=== PATIENT | female | born 1945 | race African-American/Black ===

== ENCOUNTER → 2019-04-15 | Outpatient (CLI) | payer MEDICARE, OTHER ==
[~2019-04-15] MED LIST: ALB5IS NEB; AMLO5TAB15 PO; BUDE0.253 IN
[2019-04-15 08:21] LABS: Basophils # (auto) 0 uL; Basophils % (auto) 0.6 % (0.0-2.0); Eosinophils # (auto) 0.1 uL; Eosinophils % (auto) 1.8 % (0.0-7.0); Hematocrit 39.9 % (36.0-46.0); Hemoglobin 13.4 g/dL (12.2-16.2); Lymphocytes # (auto) 1.7 uL; Lymphocytes % (auto) 25.4 % (10.0-50.0); Mean Corpuscular Hemoglobin 28.2 pg (28.0-32.0); Mean Corpuscular Hgb Conc. 33.6 g/dL (32.0-36.0); Mean Corpuscular Volume 84.1 fL (80.0-100.0); Monocytes # (auto) 0.6 uL; Monocytes % (auto) 8.2 % (0.0-12.0); Neutrophils # (auto) 4.4 uL; Platelet Count (auto) 356 10^3/uL (140-450); Red Blood Cells 4.75 10^6/uL (4.0-5.20); Red Cell Distribution Width 15.2 % (11.8-14.3); White Blood Cell 6.9 10^3/uL (4.4-10.8)
[2019-04-15 08:53] LABS: Potassium 3.8 mmol/L (3.5-5.1)
== END | disposition home or self-care (01) ==
LOC: LAB 07:41
PROVIDERS: ATTEND Internal Medicine
DX: I10 Essential (primary) hypertension (principal); E87.6 Hypokalemia
CPT/HCPCS: 36415; 80061; 82088; 84132; 85025

== ENCOUNTER → 2019-05-06 | Day surgery (SDC) | payer MEDICARE, OTHER ==
[2019-05-03 09:44] LABS: Basophils # (auto) 0 uL; Basophils % (auto) 0.2 % (0.0-2.0); Eosinophils # (auto) 0.1 uL; Eosinophils % (auto) 1.5 % (0.0-7.0); Hematocrit 37.8 % (36.0-46.0); Hemoglobin 12.6 g/dL (12.2-16.2); Lymphocytes # (auto) 1.4 uL; Lymphocytes % (auto) 17.4 % (10.0-50.0); Mean Corpuscular Hemoglobin 28.2 pg (28.0-32.0); Mean Corpuscular Hgb Conc. 33.4 g/dL (32.0-36.0); Mean Corpuscular Volume 84.4 fL (80.0-100.0); Monocytes # (auto) 0.4 uL; Monocytes % (auto) 5.1 % (0.0-12.0); Neutrophils # (auto) 6.1 uL; Neutrophils % (auto) 75.8 % (37.0-80.0); Platelet Count (auto) 277 10^3/uL (140-450); Red Blood Cells 4.48 10^6/uL (4.0-5.20); Red Cell Distribution Width 14.8 % (11.8-14.3); White Blood Cell 8.1 10^3/uL (4.4-10.8)
[2019-05-03 10:08] LABS: INR 0.96 (0.9-1.15); Partial Thromboplastin Time 26.8 sec (23.64-32.05)
[~2019-05-06] VITALS: Ht 157.5 cm; Wt 77.1 kg
[~2019-05-06] MED LIST changes: +SODIUM CHLORIDE LOCK 10 ML ONE; +diphenhdrAMINE HCL 50 MG/1 ML VL ONE
[2019-05-06] MEDS: MIDAZOLAM HCL 5 MG/ML-1ML VIAL ONE ×3 (10:00→10:07)
[2019-05-06] MEDS: fentaNYL CITRATE 100 MCG/2 ML VL ONE ×3 (10:00→10:07)
[2019-05-06 10:41] VITALS: BP 115/64
== END | disposition home or self-care (01) ==
LOC: GI 08:25
PROVIDERS: ATTEND Internal Medicine Gastroenterology
DX: K52.9 Noninfective gastroenteritis and colitis, unspecified (principal); K57.30 Diverticulosis of large intestine without perforation or abscess without bleeding; J45.909 Unspecified asthma, uncomplicated; G51.0 Bell's palsy; Z79.899 Other long term (current) drug therapy
CPT/HCPCS: 36415; 45378; 85025; 85610; 85730; J1200; J2250; J3010; J7030; G0500

== ENCOUNTER → 2019-08-23 | Outpatient (CLI) | payer MEDICARE ==
[~2019-08-23] MED LIST changes: -SODIUM CHLORIDE LOCK 10 ML ONE; -diphenhdrAMINE HCL 50 MG/1 ML VL ONE
[2019-08-23 10:26] LABS: Potassium 3.9 mmol/L (3.5-5.1)
[2019-08-23 11:09] LABS: Albumin 3.4 g/dL (3.4-5.0); BUN/Creatinine Ratio 21.1; Bilirubin, Total 0.4 mg/dL (0.2-1.0); Calcium 8.7 mg/dL (8.5-10.1); Total Protein 7.8 g/dL (6.4-8.2)
== END | disposition home or self-care (01) ==
LOC: LAB 09:33
PROVIDERS: ATTEND Internal Medicine
DX: I10 Essential (primary) hypertension (principal); E78.00 Pure hypercholesterolemia, unspecified
CPT/HCPCS: 36415; 80053; 80061; 84439; 84443

== ENCOUNTER → 2019-08-27 | Outpatient (CLI) | payer MEDICARE ==
[2019-08-27 10:36] LABS: Basophils # (auto) 0 10 ^3/uL (0-0.2); Basophils % (auto) 0.5 % (0.0-2.0); Eosinophils # (auto) 0.1 10 ^3/uL (0-0.8); Eosinophils % (auto) 1.1 % (0.0-7.0); Hemoglobin 12.7 g/dL (12.2-16.2); Lymphocytes # (auto) 1.2 10 ^3/uL (0.4-5.4); Mean Corpuscular Hemoglobin 27.5 pg (28.0-32.0); Mean Corpuscular Hgb Conc. 32.6 g/dL (32.0-36.0); Mean Corpuscular Volume 84.6 fL (80.0-100.0); Monocytes # (auto) 0.4 10 ^3/uL (0-1.3); Monocytes % (auto) 5.5 % (0.0-12.0); Neutrophils # (auto) 5.5 10 ^3/uL (1.6-8.6); Neutrophils % (auto) 75.9 % (37.0-80.0); Platelet Count (auto) 277 10^3/uL (140-450); Red Blood Cells 4.61 10^6/uL (4.0-5.20); Red Cell Distribution Width 14.7 % (11.8-14.3); White Blood Cell 7.3 10^3/uL (4.4-10.8)
[2019-08-27 10:49] LABS: Urine Bacteria MANY /hpf (None Seen); Urine Blood Negative /uL (Negative); Urine Hyaline Cast FEW /lpf (0 - 2); Urine Mucus FEW (None Seen); Urine Specific Gravity 1.014 (1.001-1.035); Urine WBC 2 /hpf (0 - 5)
[2019-08-27 11:13] LABS: Potassium 3.8 mmol/L (3.5-5.1)
[2019-08-27 11:22] LABS: Albumin 3.6 g/dL (3.4-5.0); BUN/Creatinine Ratio 15.7; Bilirubin, Total 0.3 mg/dL (0.2-1.0); Calcium 9.3 mg/dL (8.5-10.1); Total Protein 7.8 g/dL (6.4-8.2)
== END | disposition home or self-care (01) ==
LOC: LAB 09:55
PROVIDERS: ATTEND Internal Medicine
DX: Z01.84 Encounter for antibody response examination (principal); F41.9 Anxiety disorder, unspecified; I10 Essential (primary) hypertension
CPT/HCPCS: 36415; 80053; 81001; 84439; 84443; 85025; 85652; 86735; 86762; 86765

== ENCOUNTER → 2019-08-29 | Outpatient (CLI) | payer MEDICARE ==
[~2019-08-29] MED LIST changes: +ATOR20TA PO; +CAR3125T PO; +ESCI5TAB14 PO; +POTA-220 PO
== END | disposition home or self-care (01) ==
LOC: LAB 12:31
PROVIDERS: ATTEND Internal Medicine
DX: R35.0 Frequency of micturition (principal); I10 Essential (primary) hypertension
CPT/HCPCS: 87086; 87088; 87186

== ENCOUNTER → 2019-09-13 | Outpatient (CLI) | payer MEDICARE ==
[~2019-09-13] MED LIST changes: -ATOR20TA PO; -CAR3125T PO; -ESCI5TAB14 PO; -POTA-220 PO
[2019-09-13 10:50] LABS: Urine WBC None Seen /hpf (0 - 5)
[2019-09-13 11:46] LABS: Urine Bacteria NONE SEEN /hpf (None Seen); Urine Blood Negative /uL (Negative); Urine Mucus FEW (None Seen); Urine Specific Gravity 1.018 (1.001-1.035)
== END | disposition home or self-care (01) ==
LOC: LAB 10:47
PROVIDERS: ATTEND Internal Medicine
DX: N39.0 Urinary tract infection, site not specified (principal); I10 Essential (primary) hypertension
CPT/HCPCS: 81001

== ENCOUNTER → 2019-10-23 | Outpatient (CLI) | payer MEDICARE ==
[~2019-10-23] MED LIST changes: +ALBUTEROL SULF 2.5 MG/0.5ML(0.5%) NEB SOLN ONE
== END | disposition home or self-care (01) ==
LOC: RT 08:34
PROVIDERS: ATTEND Internal Medicine Pulmonary Disease
DX: J45.909 Unspecified asthma, uncomplicated (principal); R05 Cough
CPT/HCPCS: 94060; 94727; 94729

== ENCOUNTER → 2019-11-04 | Outpatient (CLI) | payer MEDICARE ==
[~2019-11-04] VITALS: Ht 157.5 cm; Wt 79.4 kg
[~2019-11-04] MED LIST changes: -ALBUTEROL SULF 2.5 MG/0.5ML(0.5%) NEB SOLN ONE; +ATOR20TA PO; +CAR3125T PO; +ESCI5TAB14 PO; +MIDAZOLAM HCL 5 MG/ML-1ML VIAL ONE; +POTA-220 PO; +SODIUM CHLORIDE LOCK 0 ML ONE; +diphenhdrAMINE HCL 50 MG/1 ML VL ONE; +fentaNYL CITRATE 100 MCG/2 ML VL ONE
[2019-11-04 10:48] LABS: Basophils # (auto) 0 10 ^3/uL (0-0.2); Basophils % (auto) 0.4 % (0.0-2.0); Eosinophils # (auto) 0.1 10 ^3/uL (0-0.8); Hematocrit 40.8 % (36.0-46.0); Hemoglobin 13.2 g/dL (12.2-16.2); Lymphocytes # (auto) 1.2 10 ^3/uL (0.4-5.4); Lymphocytes % (auto) 16.8 % (10.0-50.0); Mean Corpuscular Hemoglobin 27.6 pg (28.0-32.0); Mean Corpuscular Hgb Conc. 32.3 g/dL (32.0-36.0); Mean Corpuscular Volume 85.4 fL (80.0-100.0); Monocytes # (auto) 0.4 10 ^3/uL (0-1.3); Monocytes % (auto) 5.8 % (0.0-12.0); Neutrophils # (auto) 5.3 10 ^3/uL (1.6-8.6); Platelet Count (auto) 312 10^3/uL (140-450); Red Blood Cells 4.78 10^6/uL (4.0-5.20); White Blood Cell 7.1 10^3/uL (4.4-10.8)
[2019-11-04 11:52] LABS: INR 0.92 (0.9-1.15)
== END | disposition home or self-care (01) ==
LOC: GI 07:00 → EDSTATUS 11-08 11:30
PROVIDERS: ATTEND Internal Medicine Gastroenterology
DX: K57.30 Diverticulosis of large intestine without perforation or abscess without bleeding (principal); Z01.818 Encounter for other preprocedural examination; G40.909 Epilepsy, unspecified, not intractable, without status epilepticus; J45.909 Unspecified asthma, uncomplicated; E66.9 Obesity, unspecified; Z68.32 Body mass index [BMI] 32.0-32.9, adult; Z20.828 Contact with and (suspected) exposure to other viral communicable diseases
CPT/HCPCS: 36415; 85025; 85610; 85730; U0003; J2250

== ENCOUNTER → 2020-02-05 | Outpatient (CLI) | payer MEDICARE, OTHER ==
[~2020-02-05] MED LIST changes: -ALB5IS NEB; -BUDE0.253 IN; -MIDAZOLAM HCL 5 MG/ML-1ML VIAL ONE; -SODIUM CHLORIDE LOCK 0 ML ONE; -diphenhdrAMINE HCL 50 MG/1 ML VL ONE; -fentaNYL CITRATE 100 MCG/2 ML VL ONE
== END | disposition home or self-care (01) ==
LOC: LAB 13:53
PROVIDERS: ATTEND Nurse Practitioner Family
DX: Z20.828 Contact with and (suspected) exposure to other viral communicable diseases (principal)
CPT/HCPCS: C9803; U0003

== ENCOUNTER → 2020-10-12 | Outpatient (CLI) | payer MEDICARE, OTHER ==
[~2020-10-12] MED LIST changes: +AMLO-489 PO; -AMLO5TAB15 PO; -ESCI5TAB14 PO; +ESCI5TAB33 PO
[2020-10-12 10:56] LABS: Urine Bacteria MANY /hpf (None Seen); Urine Blood Negative /uL (Negative); Urine Mucus FEW (None Seen); Urine Specific Gravity 1.018 (1.001-1.035); Urine WBC 1 /hpf (0 - 5)
[2020-10-12 10:58] LABS: Albumin 3.6 g/dL (3.4-5.0); Calcium 9.5 mg/dL (8.5-10.1)
[2020-10-12 11:03] LABS: BUN/Creatinine Ratio 16.3; Bilirubin, Total 0.4 mg/dL (0.2-1.0); Total Protein 8.4 g/dL (6.4-8.2)
== END | disposition home or self-care (01) ==
LOC: LAB 10:11
PROVIDERS: ATTEND Internal Medicine
DX: I10 Essential (primary) hypertension (principal); J45.909 Unspecified asthma, uncomplicated
CPT/HCPCS: 36415; 80053; 80061; 81001; 82785; 84439; 84443

== ENCOUNTER → 2021-04-19 | Outpatient (CLI) | payer OTHER, MEDICARE ==
[2021-04-19 10:46] LABS: Basophils # (auto) 0 10 ^3/uL (0-0.2); Basophils % (auto) 0.4 % (0.0-2.0); Eosinophils # (auto) 0.1 10 ^3/uL (0-0.8); Eosinophils % (auto) 1.4 % (0.0-7.0); Hematocrit 38.8 % (36.0-46.0); Hemoglobin 12.5 g/dL (12.2-16.2); Lymphocytes # (auto) 1.7 10 ^3/uL (0.4-5.4); Lymphocytes % (auto) 23.1 % (10.0-50.0); Mean Corpuscular Hemoglobin 27.5 pg (28.0-32.0); Mean Corpuscular Hgb Conc. 32.1 g/dL (32.0-36.0); Mean Corpuscular Volume 85.6 fL (80.0-100.0); Monocytes # (auto) 0.5 10 ^3/uL (0-1.3); Monocytes % (auto) 7.3 % (0.0-12.0); Neutrophils # (auto) 4.9 10 ^3/uL (1.6-8.6); Neutrophils % (auto) 67.8 % (37.0-80.0); Nucleated Red Blood Cells % 0.1 %; Red Blood Cells 4.54 10^6/uL (4.0-5.20); Red Cell Distribution Width 14.3 % (11.8-14.3); White Blood Cell 7.2 10^3/uL (4.4-10.8)
[2021-04-19 11:07] LABS: Potassium 4.2 mmol/L (3.5-5.1)
[2021-04-19 11:13] LABS: Albumin 3.7 g/dL (3.4-5.0); BUN/Creatinine Ratio 17.9; Bilirubin, Total 0.4 mg/dL (0.2-1.0); Calcium 9.4 mg/dL (8.5-10.1); Total Protein 7.9 g/dL (6.4-8.2)
== END | disposition home or self-care (01) ==
LOC: LAB 09:39
PROVIDERS: ATTEND Internal Medicine
DX: E78.5 Hyperlipidemia, unspecified (principal); M54.30 Sciatica, unspecified side; I10 Essential (primary) hypertension
CPT/HCPCS: 36415; 80053; 85025; 85652

== ENCOUNTER → 2021-11-15 | Outpatient (CLI) | payer MEDICARE, MEDICAID ==
[2021-11-15 10:53] LABS: Basophils # (auto) 0 10 ^3/uL (0-0.2); Eosinophils # (auto) 0.1 10 ^3/uL (0-0.8); Lymphocytes # (auto) 1.5 10 ^3/uL (0.4-5.4); Red Blood Cells 4.94 10^6/uL (4.0-5.20)
[2021-11-15 10:54] LABS: Basophils % (auto) 0.4 % (0.0-2.0); Eosinophils % (auto) 1.3 % (0.0-7.0); Hematocrit 40.7 % (36.0-46.0); Hemoglobin 13.2 g/dL (12.2-16.2); Mean Corpuscular Hemoglobin 26.7 pg (28.0-32.0); Mean Corpuscular Hgb Conc. 32.3 g/dL (32.0-36.0); Mean Corpuscular Volume 82.5 fL (80.0-100.0); Monocytes # (auto) 0.5 10 ^3/uL (0-1.3); Monocytes % (auto) 5.9 % (0.0-12.0); Neutrophils % (auto) 76.4 % (37.0-80.0); Red Cell Distribution Width 16.9 % (11.8-14.3); White Blood Cell 9.2 10^3/uL (4.4-10.8)
[2021-11-15 12:07] LABS: Urine Bacteria FEW /hpf (None Seen); Urine Blood Negative /uL (Negative); Urine Mucus FEW (None Seen); Urine Specific Gravity 1.015 (1.001-1.035); Urine WBC 6 /hpf (0 - 5)
[2021-11-15 15:23] LABS: Albumin 3.6 g/dL (3.4-5.0); Calcium 9.6 mg/dL (8.5-10.1); Potassium 4.7 mmol/L (3.5-5.1)
[2021-11-15 16:08] LABS: BUN/Creatinine Ratio 17.5; Bilirubin, Total 0.5 mg/dL (0.2-1.0); Total Protein 7.4 g/dL (6.4-8.2)
== END | disposition home or self-care (01) ==
LOC: LAB 10:29
PROVIDERS: ATTEND Internal Medicine
DX: I10 Essential (primary) hypertension (principal); J45.909 Unspecified asthma, uncomplicated
CPT/HCPCS: 36415; 80053; 80061; 81001; 84439; 84443; 85025; 85652

== ENCOUNTER 2021-12-22 07:19 | Emergency (ER) | payer MEDICARE, MEDICAID ==
[~2021-12-22] VITALS: Ht 157.5 cm; Wt 80.5 kg
[2021-12-22 07:43] VITALS: BP 137/61
[2021-12-22 08:04] LABS: Urine Bacteria FEW /hpf (None Seen); Urine Blood Negative /uL (Negative); Urine Mucus FEW (None Seen); Urine Specific Gravity 1.016 (1.001-1.035); Urine WBC 36 /hpf (0 - 5)
[2021-12-22 08:12] LABS: Basophils # (auto) 0.1 10 ^3/uL (0-0.2); Eosinophils # (auto) 0 10 ^3/uL (0-0.8); Eosinophils % (auto) 0.3 % (0.0-7.0); Hemoglobin 12.6 g/dL (12.2-16.2); Lymphocytes # (auto) 2.1 10 ^3/uL (0.4-5.4); Monocytes # (auto) 0.8 10 ^3/uL (0-1.3); Monocytes % (auto) 5.8 % (0.0-12.0)
[2021-12-22 08:14] LABS: Basophils % (auto) 0.7 % (0.0-2.0); Hematocrit 39.3 % (36.0-46.0); Lymphocytes % (auto) 15.6 % (10.0-50.0); Mean Corpuscular Hemoglobin 26.8 pg (28.0-32.0); Mean Corpuscular Hgb Conc. 32.1 g/dL (32.0-36.0); Mean Corpuscular Volume 83.6 fL (80.0-100.0); Neutrophils # (auto) 10.3 10 ^3/uL (1.6-8.6); Neutrophils % (auto) 77.6 % (37.0-80.0); Red Cell Distribution Width 16.4 % (11.8-14.3); White Blood Cell 13.3 10^3/uL (4.4-10.8)
[2021-12-22 08:36] LABS: Albumin 3.2 g/dL (3.4-5.0); Calcium 8.5 mg/dL (8.5-10.1)
[2021-12-22 08:40] LABS: BUN/Creatinine Ratio 19.2; Bilirubin, Total 0.5 mg/dL (0.2-1.0)
[2021-12-22] MEDS ORDERED: metroNIDAZOLE 500MG/100ML 100 ML IV ONE (12:45)
[2021-12-22] MEDS ORDERED: cefTRIAXone 1GM/50ML D5W 50 ML IV ONE (12:45)
[2021-12-22] MEDS ORDERED: METR500T14 PO (14:07)
[2021-12-22] MEDS ORDERED: CIPR500T4 PO (14:07)
== END 2021-12-22 15:05 | disposition home or self-care (01) ==
LOC: ER 07:19
DX: N39.0 Urinary tract infection, site not specified (principal); K57.92 Diverticulitis of intestine, part unspecified, without perforation or abscess without bleeding; E78.5 Hyperlipidemia, unspecified; I10 Essential (primary) hypertension
CPT/HCPCS: 36415; 74177; 80053; 81001; 83690; 84484; 85025; 93005; 99285; J0696; J3490

== ENCOUNTER → 2021-12-27 | Outpatient (CLI) | payer MEDICARE, MEDICAID ==
[~2021-12-27] MED LIST changes: +CIPR500T4 PO; +METR500T14 PO
== END | disposition home or self-care (01) ==
LOC: XYW 14:38
PROVIDERS: ATTEND Internal Medicine
DX: I10 Essential (primary) hypertension (principal); M79.89 Other specified soft tissue disorders
CPT/HCPCS: 93306

== ENCOUNTER → 2022-06-13 | Outpatient (CLI) | payer MEDICARE, MEDICAID ==
[2022-06-13 11:33] LABS: Basophils # (auto) 0 10 ^3/uL (0-0.2); Basophils % (auto) 0.2 % (0.0-2.0); Eosinophils # (auto) 0.1 10 ^3/uL (0-0.8); Eosinophils % (auto) 0.8 % (0.0-7.0); Hematocrit 39.4 % (36.0-46.0); Lymphocytes # (auto) 1.7 10 ^3/uL (0.4-5.4); Lymphocytes % (auto) 17.5 % (10.0-50.0); Mean Corpuscular Volume 84.8 fL (80.0-100.0); Monocytes # (auto) 0.7 10 ^3/uL (0-1.3); Monocytes % (auto) 7.1 % (0.0-12.0); Neutrophils # (auto) 7.1 10 ^3/uL (1.6-8.6); Neutrophils % (auto) 74.4 % (37.0-80.0); Nucleated Red Blood Cells % 0.1 %; Red Blood Cells 4.64 10^6/uL (4.0-5.20); Red Cell Distribution Width 15.4 % (11.8-14.3); White Blood Cell 9.6 10^3/uL (4.4-10.8)
[2022-06-13 11:46] LABS: INR 0.91 (0.9-1.15)
[2022-06-13 12:08] LABS: Albumin 3.4 g/dL (3.4-5.0); Calcium 9.1 mg/dL (8.5-10.1)
[2022-06-13 12:11] LABS: BUN/Creatinine Ratio 17.2 (10.0-20.0); Bilirubin, Total 0.4 mg/dL (0.2-1.0); Total Protein 7.8 g/dL (6.4-8.2)
[2022-06-13 12:17] LABS: Hepatitis B Surface Antibody Positive (Negative)
[2022-06-13 12:54] LABS: Hepatitis A Total Antibody Negative (Negative)
[2022-06-13 13:17] LABS: Hepatitis B Core IgM Negative; Hepatitis C Antibody Negative (Negative)
[2022-06-13 13:18] LABS: Hepatitis A Ab IgM Negative
== END | disposition home or self-care (01) ==
LOC: LAB 10:56
PROVIDERS: ATTEND Internal Medicine
DX: I10 Essential (primary) hypertension (principal); R93.5 Abnormal findings on diagnostic imaging of other abdominal regions, including retroperitoneum
CPT/HCPCS: 36415; 80053; 83540; 83550; 85025; 85610; 86038; 86704; 86705; 86706; 86708; 86709; 86803; 87340

== ENCOUNTER → 2022-08-30 | Outpatient (CLI) | payer MEDICARE, MEDICAID ==
[~2022-08-30] MED LIST changes: -AMLO-489 PO; +AMLO1TAB22 PO; +ESCI5TAB20 PO; -ESCI5TAB33 PO; +METR-344 PO; -METR500T14 PO
[2022-08-30 09:13] LABS: Basophils # (auto) 0.2 10 ^3/uL (0-0.2); Basophils % (auto) 1.5 % (0.0-2.0); Eosinophils # (auto) 0.7 10 ^3/uL (0-0.8); Eosinophils % (auto) 6.2 % (0.0-7.0); Hematocrit 42.5 % (36.0-46.0); Hemoglobin 13.9 g/dL (12.2-16.2); Lymphocytes # (auto) 1.6 10 ^3/uL (0.4-5.4); Lymphocytes % (auto) 14.7 % (10.0-50.0); Mean Corpuscular Hemoglobin 27.8 pg (28.0-32.0); Mean Corpuscular Hgb Conc. 32.6 g/dL (32.0-36.0); Mean Corpuscular Volume 85.2 fL (80.0-100.0); Monocytes # (auto) 0.5 10 ^3/uL (0-1.3); Monocytes % (auto) 4.2 % (0.0-12.0); Neutrophils # (auto) 7.9 10 ^3/uL (1.6-8.6); Neutrophils % (auto) 73.4 % (37.0-80.0); Nucleated Red Blood Cells % 0.1 %; Red Blood Cells 4.99 10^6/uL (4.0-5.20); White Blood Cell 10.7 10^3/uL (4.4-10.8)
[2022-08-30 09:36] LABS: Urine Bacteria NONE SEEN /hpf (None Seen); Urine Blood Negative /uL (Negative); Urine Mucus FEW (None Seen); Urine Specific Gravity 1.023 (1.001-1.035); Urine WBC 12 /hpf (0 - 5)
[2022-08-30 10:27] LABS: Albumin 3.7 g/dL (3.4-5.0); Calcium 9.1 mg/dL (8.5-10.1); Potassium 3.8 mmol/L (3.5-5.1)
[2022-08-30 10:34] LABS: BUN/Creatinine Ratio 11.8 (10.0-20.0); Bilirubin, Total 0.4 mg/dL (0.2-1.0); Total Protein 8.2 g/dL (6.4-8.2)
== END | disposition home or self-care (01) ==
LOC: LAB 08:46
PROVIDERS: ATTEND Internal Medicine
DX: I10 Essential (primary) hypertension (principal); J45.909 Unspecified asthma, uncomplicated
CPT/HCPCS: 36415; 80053; 80061; 81001; 84439; 84443; 85025; 85652

== ENCOUNTER → 2023-02-13 | Outpatient (CLI) | payer OTHER, MEDICAID ==
[2023-02-13 13:34] LABS: Basophils # (auto) 0.1 10 ^3/uL (0-0.2); Eosinophils # (auto) 0.2 10 ^3/uL (0-0.8); Eosinophils % (auto) 1.8 % (0.0-7.0); Hematocrit 41.2 % (36.0-46.0); Hemoglobin 13.4 g/dL (12.2-16.2); Lymphocytes % (auto) 18.6 % (10.0-50.0); Mean Corpuscular Hemoglobin 27.8 pg (28.0-32.0); Mean Corpuscular Hgb Conc. 32.5 g/dL (32.0-36.0); Mean Corpuscular Volume 85.6 fL (80.0-100.0); Monocytes # (auto) 0.7 10 ^3/uL (0-1.3); Monocytes % (auto) 6.7 % (0.0-12.0); Neutrophils # (auto) 7.7 10 ^3/uL (1.6-8.6); Neutrophils % (auto) 71.9 % (37.0-80.0); Nucleated Red Blood Cells % 0.1 %; Red Blood Cells 4.82 10^6/uL (4.0-5.20); Red Cell Distribution Width 14.7 % (11.8-14.3); White Blood Cell 10.7 10^3/uL (4.4-10.8)
[2023-02-13 13:44] LABS: Alanine Aminotransferase 20 U/L (7-40); Alkaline Phosphatase 158 U/L (46-116); Anion Gap 7 (5-15); BUN/Creatinine Ratio 11.8 (10.0-20.0); Blood Urea Nitrogen 9 mg/dL (9-23); Calcium 9.6 mg/dL (8.5-10.1); Carbon Dioxide 28 mmol/L (20-30); Chloride 106 mmol/L (98-107); Glucose 83 mg/dL (74-106); Potassium 4.2 mmol/L (3.5-5.1); Sodium 141 mmol/L (136-145)
[2023-02-13 13:45] LABS: Albumin 4.7 g/dL (3.2-4.8); Aspartate Aminotransferase 12 U/L (13-40)
[2023-02-13 13:46] LABS: Bilirubin, Total 0.3 mg/dL (0.2-1.0); Total Protein 7.8 g/dL (5.7-8.2)
[2023-02-13 13:54] LABS: CRP High Sensitivity 1.65 mg/dL (<1.0)
[2023-02-13 14:44] LABS: Erythrocyte Sedimentation Rate 52 mm/hr (0-20)
== END | disposition home or self-care (01) ==
LOC: LAB 12:40
PROVIDERS: ATTEND Internal Medicine
DX: I10 Essential (primary) hypertension (principal); K57.32 Diverticulitis of large intestine without perforation or abscess without bleeding
CPT/HCPCS: 36415; 80053; 85025; 85652; 86141

== ENCOUNTER → 2023-05-17 | Outpatient (CLI) | payer OTHER, MEDICAID ==
[2023-05-17 10:05] LABS: Urine Bacteria FEW /hpf (None Seen); Urine Blood Negative /uL (Negative); Urine Clarity HAZY (Clear); Urine Hyaline Cast FEW /lpf (0 - 2); Urine Mucus FEW (None Seen); Urine Protein, UAD Negative (Negative); Urine Specific Gravity 1.018 (1.001-1.035); Urine Urobilinogen Normal (Negative); Urine WBC 3 /hpf (0 - 5); Urine pH 5.5 (5.0-8.0)
[2023-05-17 10:09] LABS: Urine Color Straw (Yellow)
[2023-05-17 10:20] LABS: Alanine Aminotransferase 17 U/L (7-40); Albumin 4.6 g/dL (3.2-4.8); Alkaline Phosphatase 143 U/L (46-116); Anion Gap 5 (5-15); Aspartate Aminotransferase 13 U/L (13-40); BUN/Creatinine Ratio 11.5 (10.0-20.0); Basophils # (auto) 0 10 ^3/uL (0-0.2); Basophils % (auto) 0.4 % (0.0-2.0); Bilirubin, Total 0.5 mg/dL (0.2-1.0); Blood Urea Nitrogen 9 mg/dL (9-23); Calcium 9.5 mg/dL (8.5-10.1); Carbon Dioxide 29 mmol/L (20-30); Chloride 107 mmol/L (98-107); Cholesterol 180 mg/dL (< 200); Eosinophils # (auto) 0 10 ^3/uL (0-0.8); Eosinophils % (auto) 0.5 % (0.0-7.0); Glucose 110 mg/dL (74-106); HDL Cholesterol 40 mg/dL (40-59); Hematocrit 39.6 % (36.0-46.0); Hemoglobin 12.9 g/dL (12.2-16.2); LDL Cholesterol 105 mg/dL (< 100); Lymphocytes # (auto) 1.8 10 ^3/uL (0.4-5.4); Lymphocytes % (auto) 19.7 % (10.0-50.0); Mean Corpuscular Hemoglobin 28.5 pg (28.0-32.0); Mean Corpuscular Hgb Conc. 32.5 g/dL (32.0-36.0); Mean Corpuscular Volume 87.6 fL (80.0-100.0); Monocytes # (auto) 0.6 10 ^3/uL (0-1.3); Monocytes % (auto) 6.5 % (0.0-12.0); Neutrophils # (auto) 6.6 10 ^3/uL (1.6-8.6); Neutrophils % (auto) 72.9 % (37.0-80.0); Nucleated Red Blood Cells % 0.1 %; Potassium 4.4 mmol/L (3.5-5.1); Red Blood Cells 4.52 10^6/uL (4.0-5.20); Red Cell Distribution Width 15.1 % (11.8-14.3); Sodium 141 mmol/L (136-145); Total Protein 7.3 g/dL (5.7-8.2); Triglycerides 175 mg/dL (< 150)
[2023-05-17 10:50] LABS: Erythrocyte Sedimentation Rate 36 mm/hr (0-20)
== END | disposition home or self-care (01) ==
LOC: LAB 09:39
PROVIDERS: ATTEND Internal Medicine
DX: J44.9 Chronic obstructive pulmonary disease, unspecified (principal); I10 Essential (primary) hypertension
CPT/HCPCS: 36415; 80053; 80061; 81001; 84439; 84443; 85025; 85652

== ENCOUNTER 2024-03-31 11:13 | Emergency (ER) | payer OTHER, MEDICAID ==
[~2024-03-31] VITALS: Ht 157.5 cm; Wt 80.5 kg
[~2024-03-31 11:13] MED LIST changes: -CAR3125T PO; +CARV-214 PO; +PANT40TA2 PO
[2024-03-31 12:14] LABS: Basophils # (auto) 0 10 ^3/uL (0-0.2); Basophils % (auto) 0.4 % (0.0-2.0); Eosinophils # (auto) 0.6 10 ^3/uL (0-0.8); Eosinophils % (auto) 6.5 % (0.0-7.0); Hematocrit 42.1 % (36.0-46.0); Hemoglobin 13.8 g/dL (12.2-16.2); Lymphocytes # (auto) 1.6 10 ^3/uL (0.4-5.4); Lymphocytes % (auto) 17.2 % (10.0-50.0); Mean Corpuscular Hemoglobin 28.7 pg (28.0-32.0); Mean Corpuscular Hgb Conc. 32.7 g/dL (32.0-36.0); Mean Corpuscular Volume 87.6 fL (80.0-100.0); Monocytes # (auto) 0.5 10 ^3/uL (0-1.3); Monocytes % (auto) 5.4 % (0.0-12.0); Neutrophils # (auto) 6.5 10 ^3/uL (1.6-8.6); Neutrophils % (auto) 70.5 % (37.0-80.0); Platelet Count (auto) 295 10^3/uL (140-450); Red Cell Distribution Width 14.8 % (11.8-14.3); White Blood Cell 9.3 10^3/uL (4.4-10.8)
[2024-03-31 12:33] LABS: Alanine Aminotransferase 12 U/L (7-40); Albumin 4.6 g/dL (3.2-4.8); Anion Gap 6 (5-15); BUN/Creatinine Ratio 10.4 (10.0-20.0); Blood Urea Nitrogen 10 mg/dL (9-23); Calcium 9.7 mg/dL (8.7-10.4); Carbon Dioxide 26 mmol/L (20-31); Glucose 106 mg/dL (74-106); Magnesium 2.4 mg/dL (1.6-2.6); Potassium 4.2 mmol/L (3.5-5.1); Sodium 140 mmol/L (136-145); Total Protein 7.4 g/dL (5.7-8.2)
[2024-03-31 12:35] LABS: Alkaline Phosphatase 146 U/L (46-116); Aspartate Aminotransferase 11 U/L (13-40); Bilirubin, Total 0.3 mg/dL (0.2-1.0); Chloride 108 mmol/L (98-107)
--- NOTE | 2024-03-31 13:00 | DVH ---
EXAM: CT HEAD WITHOUT CONTRAST HISTORY: vertigo COMPARISON: None TECHNIQUE: Axial images were obtained and reformatted in coronal and sagittal planes. All CT scans at this medical facility are performed using dose modulation techniques as appropriate t o a performed exam including the following: Automated exposure control was utilized; adjustment of th e MA and/or KV according to patient size; and use of iterative reconstruction technique. CT Dose: CTDI volume is 53.83 mGy. Dose-length product is 972.42 mGy*cm FINDINGS: Supratentorial Region: No evidence for large acute territorial ischemia. No intracranial hemorrhage is noted. Confluent white matter hypoattenuating foci are noted bilaterally, which typically reflect chronic microvascular ischemic changes. Posterior Fossa: No acute abnormality. Brainstem: Unremarkable. Sellar/Suprasellar Region: Unremarkable. Ventricles, Cisterns, Sulci: Age-appropriate. Orbits: Unremarkable. Paranasal Sinuses: Mild ethmoid sinus mucosal thickening noted. Mastoid Air Cells: Unremarkable. Vasculature: Unremarkable. Bones/Soft Tissues: No acute abnormality. Other: None. IMPRESSION: 1. No acute intracranial process.
[2024-03-31] MEDS: SODIUM CHLORIDE 0.9% 1,000 ML IV ONE (13:06)
[2024-03-31] MEDS: FUROSEMIDE 20 MG/2 ML VIAL IV ONE (13:37)
[2024-03-31] MEDS: LORazepam 2MG/ML-1ML VIAL IV ONE (13:37)
[2024-03-31] MEDS: MECLIZINE HCL 25 MG TAB PO ONE (13:37)
--- NOTE | 2024-03-31 13:37 | ED.PDOC ---
HPI (NEURO) HPI Comments 79F presents to the Er in a wheelchair and w/ prior Hx of [place] P[place]y, HTN and High lipids which all may be associated to the c/c of dizziness. Pt reports that she started to get dizziness on of 03/28/23. Pt notes that she did see her PCP and went to Urgent Care during the past 3 days before coming to the ER. Pt states that the dizziness is as if "the room is spinning and worsens when I close my eyes." PMHx of COPD. SHx of Tonsillectomy and Cataract Sx. Denies chills, fever,N/V/D, SOB, CP or other associated symptom's, modifiers, or recent injuries or sick contact at this time. Chief Complaint: Dizziness Time Seen by MD: 13:20 Primary Care Provider: LOVE Oconnell Notes: Nurses Notes, Medications Information Source: Patient Mode of Arrival: Ambulatory Severity: Moderate Dizziness/Weakness Severity: Unable to do activities Headache Severity: Moderate Timing: Days Duration: Days Prehospital treatment: None Circumstances: Spontaneous Before: Normal During: Awake After: Normal Mentation Past Medical History PAST MEDICAL HISTORY: COPD, High Lipids, HTN Past Medical History (Other): [place] p[place]y Surgical History: Tonsillectomy Surgical History (Other): cataract Sx SAVINGS COUNSELOR History: No Pertinent SAVINGS COUNSELOR History, Unknown Family History Family History: Reviewed,noncontributory to illness, Unknown Social History Smoker: Non-Smoker Alcohol: Denies ETOH Use Drugs: Denies Drug Use Lives In: Home Constitutional: denies: chills, diaphoresis, fatigue, fever, malaise, sweats, w eakness, others EENTM: denies: blurred vision, double vision, ear bleeding, ear discharge, ear drainage, ear pain, ear ringing, eye pain, eye redness, hearing loss, mouth pain, mouth swelling, nasal discharge, nose bleeding, nose congestion, nose pain, photophobia, tearing, throat pain, throat swelling, voice changes, others Respiratory: denies: cough, hemoptysis, orthopnea, SOB at rest, shortness of breath, SOB with excertion, stridor, wheezing, others Cardiovascular: denies: chest pain, dizzy spells, diaphoresis, Dyspnea on exertion, edema, irregular heart beat, left arm pain, lightheadedness, palpitations, PND, syncope, others Gastrointestinal: denies: abdomen distended, abdominal pain, blood streaked bowels, constipated, diarrhea, dysphagia, difficulty swallowing, hematemesis, melena, nausea, poor appetite, poor fluid intake, rectal bleeding, rectal pain, vomiting, others Genitourinary: denies: abnormal vagina bleeding, burning, dyspareunia, dysuria, flank pain, frequency, hematuria, incontinence, pain, , vagina di scharge, urgency, others Neurological: reports: dizziness; denies: fainting, headache, left sided numbness, left sided weakness, numbness, paresthesia, pre-existing deficit, right sided numbness, right sided weakness, seizure, speech problems, tingling, tremors, weakness, others Musculoskeletal: denies: back pain, gout, joint pain, joint swelling, muscle pain, muscle stiffness, neck pain, others Integumetry: denies: bruises, change in color, change in hair/nails, dryness, laceration, lesions, lumps, rash, wounds, others Allergic/Immunocompromised: denies: Difficulty Healing, Frequent Infections, Hives, Itching, others Hematologic/Lymphatic: denies: anemia, blood clots, easy bleeding, easy bruising, swollen glands, others Endocrine: denies: excessive hunger, excessive sweating, excessive thirst, excessive urination, flushing, intolerance to cold, intolerance to heat, unexplained weight gain, unexplained weight loss, others Psychiatric: denies: anxiety, bipolar disorder, depression, hopeless, panic disorder, schizophrenia, sleepless, suicidal, others All Other Systems: Reviewed and Negative Physical Exam General Appearance: No Apparent Distress, Normal HEENT: Normal ENT Inspection, PERRL/EOMI, Pharynx Normal, TMs Normal Neck: Full Range of Motion, Non-Tender, Normal, Normal Inspection Respiratory: Chest Non-Tender, Lungs Clear, No Accessory Muscle Use, No Respiratory Distress, Normal Breath Sounds Cardiovascular: No Edema, No JVD, No Murmur, No Gallop, Normal Peripheral Pulses, Regular Rate/Rhythm Breast Exam: Deferred Gastrointestinal: No Organomegaly, Non Tender, No Pulsatile Mass, Normal Bowel Sounds, Soft Genitalia: Deferred Pelvic: Deferred Rectal: Deferred Extremities: No calf tenderness, Normal capillary refill, Normal inspection, Normal range of motion, Non-tender, No pedal edema Musculoskeletal : Apperance: Normal Neurologic: Alert, contract runner II-XII nml as Tested, Dizziness, No Motor Deficits, Norm al Affect, Normal Mood, No Sensory Deficits Cerebellar Function: Normal Reflexes: Normal Skin: Dry, Normal Color, Warm Peripheral Pulses: 1+ carotid (R), 1+ carotid (L) Lymphatic: No Adenopathy EKG EKG : Pulse Rate (adult): 74 [place]: Normal Cardiac Rhythm: NSR Was a procedure done? Was a procedure done?: No Differential Diagnosis (SZ) Seizure: Hyperventilation, Hypocalcemia, Hypoglycemia, Hyponatremia CVA: Edwards's Palsy, Electrolyte Imbalance, Mass Lesion General Weakness: Anemia, Dehydration, Electrolyte imbalance, Hypotension, Hypovolemia, Labyrinthitis, Vertigo: peripheral Headache: Mass Lesion, Sinusitis X-Ray, Labs, Meds, VS Vital Signs Date Time Temp Pulse Resp B/P (MAP) Pulse Ox O2 Delivery O2 Flow Rate FiO2 03/31/24 13:37 110/80 03/31/24 13:11 98.3 82 17 152/86 (108) 97 98.3 03/31/24 13:08 Room Air* 0 21 03/31/24 11:41 74 03/31/24 11:25 98.3 80 20 110/86 (94) 96 Lab Test 03/31/24 11:55 03/31/24 11:32 Range/Units White Blood Count 9.3 4.4-10.8 10^3/uL Red Blood Count 4.80 4.0-5.20 10^6/uL Hemoglobin 13.8 12.2-16.2 g/dL Hematocrit 42.1 36.0-46.0 % Mean Corpuscular Volume 87.6 80.0-100.0 fL Mean Corpuscular Hemoglobin 28.7 28.0-32.0 pg Mean Corpuscular Hemoglobin Concent 32.7 32.0-36.0 g/dL Red Cell Distribution Width 14.8 H 11.8-14.3 % Platelet Count 295 140-450 10^3/uL Mean Platelet Volume 8.1 6.9-10.8 fL Neutrophils (%) (Auto) 70.5 37.0-80.0 % Lymphocytes (%) (Auto) 17.2 10.0-50.0 % Monocytes (%) (Auto) 5.4 0.0-12.0 % Eosinophils (%) (Auto) 6.5 0.0-7.0 % Basophils (%) (Auto) 0.4 0.0-2.0 % Neutrophils # (Auto) 6.5 1.6-8.6 10 ^3/uL Lymphocytes # (Auto) 1.6 0.4-5.4 10 ^3/uL Monocytes # (Auto) 0.5 0-1.3 10 ^3/uL Eosinophils # (Auto) 0.6 0-0.8 10 ^3/uL Basophils # (Auto) 0 0-0.2 10 ^3/uL Nucleated Red Blood Cells 0.0 % Sodium Level 140 136-145 mmol/L Potassium Level 4.2 3.5-5.1 mmol/L Chloride Level 108 H 98-107 mmol/L Carbon Dioxide Level 26 20-31 mmol/L Anion Gap 6 5-15 Blood Urea Nitrogen 10 9-23 mg/dL Creatinine 0.96 0.550-1.02 mg/dL Glomerular Filtration Rate Calc 61 >90 mL/min BUN/Creatinine Ratio 10.4 10.0-20.0 Serum Glucose 106 74-106 mg/dL Calcium Level 9.7 8.7-10.4 mg/dL Magnesium Level 2.4 1.6-2.6 mg/dL Total Bilirubin 0.3 0.2-1.0 mg/dL Aspartate Amino Transferase (AST) 11 L 13-40 U/L Alanine Aminotransferase (ALT) 12 7-40 U/L Alkaline Phosphatase 146 H 46-116 U/L Troponin I High Sensitivity < 3 L </=34 ng/L Total Protein 7.4 5.7-8.2 g/dL Albumin 4.6 3.2-4.8 g/dL POC Glucose 79 70-106 mg/dl Current Medications Medications (Trade) Dose Ordered Sig/Néstor Route Start Time Stop Time Status Last Admin Sodium Chloride 1,000 ml @ 250 mls/hr Q4H ONCE IV 03/31/24 12:30 03/31/24 16:29 03/31/24 13:06 Meclizine HCl (Antivert Tablet) 50 mg ONCE ONCE PO 03/31/24 13:30 03/31/24 13:31 DC 03/31/24 13:37 Furosemide (Lasix Injection) 10 mg ONCE ONCE IV 03/31/24 13:30 03/31/24 13:31 DC 03/31/24 13:37 Lorazepam (Ativan Inj) 0.5 mg ONCE ONCE IV 03/31/24 13:30 03/31/24 13:31 DC 03/31/24 13:37 X-Ray, Labs, Meds, VS Comment COURSE IN THE EMERGENCY DEPARTMENT EVENTFUL PATIENT CAME IN BECAUSE OF DIZZINESS MOSTLY VERTIGO FOR SEVERAL DAYS NO HEADACHE NO HISTORY OF CVA PATIENT HAS A HISTORY OF HYPERTENSION GERD HIGH CHOLESTEROL NO SURGERIES EKG NORMAL SINUS RHYTHM AT 74 CT HEAD IS NEGATIVE CBC NORMAL CMP NEGATIVE MAGNESIUM 2.4 TROPONIN LESS THAN 0.3 URINE PENDING PATIENT IS FEELING BETTER SHE WILL BE DISCHARGED HOME TO FOLLOW UP WITH HER PCP Time of 1ST Reevaluation: 13:50 Reevaluation 1ST: Unchanged Time of 2ND Reevaluation: 15:32 Reevaluation 2ND: Improved Consultation: PCP Patient Education/Counseling: Diagnosis, Treatment, Prognosis, Need For Follow Up Family Education/Counseling: Diagnosis, Treatment, Prognosis, Need For Follow Up, No Family Present Departure 1 Departure Time of Disposition: 15:32 Impression: Primary Impression: Positional vertigo of both ears Additional Impressions: History of Edwards's palsy History of hypertension Disposition: 01 HOME / SELF CARE / HOMELESS Condition: Fair Additional Instructions: FLUIDS AND FOLLOW UP WITH THE PCP e-Prescriptions Naproxen (NAPROSYN TABLET) 500 Mg Tb 1 TAB PO BID for 5 Days, #10 TAB 1 Refill Prov: SHAKEEL GARCIA MD 03/31/24 Buspirone HCl (Buspirone HCl) 10 Mg Tab 10 MG PO 3 TIMES A DAY for 10 Days, #30 TAB Prov: SHAKEEL GARCIA MD 03/31/24 Meclizine HCl (Antivert) 25 Mg Chw 25 MG PO Q.I.D. for 10 Days, #40 TAB.CHEW Prov: SHAKEEL GARCIA MD 03/31/24 Discharged With: Self Critical Care Note Critical Care Time?: No Stability Stability form required: No Heart Score Heart Score: Heart Score Response (Comments) Value History Slightly Suspicious 0 EKG Normal 0 Age >65 2 Risk Factors 1 or 2 risk factors 1 Troponin Normal limit 0 Total 3 I personally scribed for SHAKEEL GARCIA MD ([email or web address]) on 03/31/24 at 13:37. Electronically submitted by Martin Ledesma ([email or web address]). SHAKEEL GARCIA MD Mar 31, 2024 13:37
[2024-03-31] MEDS ORDERED: NAP500T PO (15:38)
[2024-03-31] MEDS ORDERED: BUSP10TA31 PO (15:38)
[2024-03-31] MEDS ORDERED: MECL25CH85 PO (15:38)
[2024-03-31 15:44] VITALS: BP 133/52; PULSE 84; RESP 18; TEMP 98.2; O2SAT 94
--- NOTE | 2024-04-01 09:44 | ECG ---
[facility] Test Date: 2024-03-31 Test Time: 11:41:39 Pat Name: ISSA JUSTIN Department: ER Room: Gender: F Rn Pool: RAMON : 1945 Requested By: NANCY LEON Order Number: [id number] Reading MD: Measurements Intervals [place] Rate: 74 P: 71 [place]: 153 QRS: 79 QRSD: 88 T: 2 QT: 385 QTc: 428 Interpretive Statements Sinus rhythm Please click the below link to view image of tracing.
== END 2024-03-31 15:49 | disposition home or self-care (01) ==
LOC: ER 11:13
DX: H81.13 Benign paroxysmal vertigo, bilateral (principal); I10 Essential (primary) hypertension; J44.9 Chronic obstructive pulmonary disease, unspecified; P11.3 Birth injury to facial nerve; Z90.89 Acquired absence of other organs; Z98.890 Other specified postprocedural states
CPT/HCPCS: 36415; 70450; 80053; 82962; 83735; 84484; 85025; 93005; 96361; 96374; 96375; 99285; J1940; J2060; J7030; J8597

== ENCOUNTER → 2024-05-17 | Outpatient (CLI) | payer OTHER, MEDICAID ==
[~2024-05-17] MED LIST changes: +BUSP10TA31 PO; +MECL25CH85 PO; +NAP500T PO
[2024-05-18 08:07] LABS: Rheumatoid Arthritis Factor <10.0 IU/mL (<14.0)
[2024-05-20 14:06] LABS: CCP IgG/IgA Antibody 5 units (0-19)
== END | disposition home or self-care (01) ==
LOC: LAB 11:52
PROVIDERS: ATTEND Internal Medicine
DX: M25.50 Pain in unspecified joint (principal)
CPT/HCPCS: 36415; 84484; 86200; 86431

== ENCOUNTER 2024-06-30 08:02 | Emergency (ER) | payer OTHER, MEDICAID ==
[~2024-06-30] VITALS: Ht 157.5 cm; Wt 80.0 kg
--- NOTE | 2024-06-30 08:22 | ECG ---
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
--- NOTE | 2024-06-30 08:25 | ED.PDOC ---
HPI (NEURO) HPI Comments 79 year old female presents to the ED with chief complaint of dizziness. Patient reports that she had woken up with dizziness, feeling like the room is spinning along with associated headache. Patient relays that she has had similar symptoms over the past 4 months, being previously diagnosed with vertigo. Patient states that she has taken some OTC motion sickness medication with slight relief in symptoms. Patient denies any N/V, blurred vision, numbness, or weakness. pt denies any new symptoms. 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: No Pertinent ELECTRICAL SYSTEMS DESIGNER History, Unknown Family History Family History: Reviewed,noncontributory to illness, Unknown Social History Smoker: Non-Smoker Alcohol: Denies ETOH Use Drugs: Denies Drug Use Lives In: Home Constitutional: denies: chills, diaphoresis, fatigue, fever, malaise, sweats, weakness, others EENTM: denies: blurred vision, double vision, ear bleeding, ear discharge, ear drainage, ear pain, ear ringing, eye pain, eye redness, hearing loss, mouth pain, mouth swelling, nasal discharge, nose bleeding, nose congestion, nose pain, photophobia, tearing, throat pain, throat swelling, voice changes, others Respiratory: denies: cough, hemoptysis, orthopnea, SOB at rest, shortness of breath, SOB with excertion, stridor, wheezing, others Cardiovascular: denies: chest pain, dizzy spells, diaphoresis, Dyspnea on exertion, edema, irregular heart beat, left arm pain, lightheadedness, palpitations, PND, syncope, others Gastrointestinal: denies: abdomen distended, abdominal pain, blood streaked bowels, constipated, diarrhea, dysphagia, difficulty swallowing, hematemesis, melena, nausea, poor appetite, poor fluid intake, rectal bleeding, rectal pain, vomiting, others Genitourinary: denies: abnormal vagina bleeding, burning, dyspareunia, dysuria, flank pain, frequency, hematuria, incontinence, pain, , vagina discharge, urgency, others Neurological: reports: dizziness, headache; denies: fainting, left sided numbness, left sided weakness, numbness, paresthesia, pre-existing deficit, right sided numbness, right sided weakness, seizure, speech problems, tingling, tremors, weakness, others Musculoskeletal: denies: back pain, gout, joint pain, joint swelling, muscle pain, muscle stiffness, neck pain, others Integumetry: denies: bruises, change in color, change in hair/nails, dryness, laceration, lesions, lumps, rash, wounds, others Allergic/Immunocompromised: denies: Difficulty Healing, Frequent Infections, Hives, Itching, others Hematologic/Lymphatic: denies: anemia, blood clots, easy bleeding, easy bruising, swollen glands, others Endocrine: denies: excessive hunger, excessive sweating, excessive thirst, excessive urination, flushing, intolerance to cold, intolerance to heat, unexplained weight gain, unexplained weight loss, others Psychiatric: denies: anxiety, bipolar disorder, depression, hopeless, panic disorder, schizophrenia, sleepless, suicidal, others All Other Systems: Reviewed and Negative Physical Exam General Appearance: No Apparent Distress, Normal HEENT: Normal ENT Inspection, Pharynx Normal, TMs Normal, Other (Leftward directional nystagmus.) Neck: Full Range of Motion, Non-Tender, Normal, Normal Inspection Respiratory: Chest Non-Tender, Lungs Clear, No Accessory Muscle Use, No Respiratory Distress, Normal Breath Sounds Cardiovascular: No Edema, No JVD, No Murmur, No Gallop, Normal Peripheral Pulses, Regular Rate/Rhythm Breast Exam: Deferred Gastrointestinal: No Organomegaly, Non Tender, No Pulsatile Mass, Normal Bowel Sounds, Soft Genitalia: Deferred Pelvic: Deferred Rectal: Deferred Extremities: No calf tenderness, Normal capillary refill, Normal inspection, Normal range of motion, Non-tender, No pedal edema Musculoskeletal : Apperance: Normal Neurologic: Alert, table games supervisor II-XII nml as Tested, No Motor Deficits, Normal Affect, Normal Mood, No Sensory Deficits, Other (Normal gait unassisted) Cerebellar Function: Normal Reflexes: Normal Skin: Dry, Normal Color, Warm Lymphatic: No Adenopathy Was a procedure done? Was a procedure done?: No Differential Diagnosis (SZ) Seizure: CVA/TIA, Hypocalcemia, Hypoglycemia, Hyponatremia, Mass Lesion CVA: CVA, SAH General Weakness: Dysrhythmia, Electrolyte imbalance, Hypoglycemia, Vertigo: central, Vertigo: peripheral Headache: CVA, Mass Lesion X-Ray, Labs, Meds, VS Vital Signs Date Time Temp Pulse Resp B/P (MAP) Pulse Ox O2 Delivery O2 Flow Rate FiO2 06/30/24 08:30 84 17 95 Room Air* 0 21 06/30/24 08:30 98.1 84 17 124/69 (87) 95 98.1 06/30/24 08:15 83 06/30/24 08:02 96.9 80 14 125/66 (85) 99 96.9 Lab Test 06/30/24 08:12 Range/Units POC Glucose 105 70-106 mg/dl Current Medications Medications (Trade) Dose Ordered Sig/Néstor Route Start Time Stop Time Status Last Admin Meclizine HCl (Antivert Tablet) 25 mg ONCE ONCE PO 06/30/24 08:30 06/30/24 08:31 DC 06/30/24 08:40 Ondansetron HCl (Zofran Po) 4 mg ONCE ONCE PO 06/30/24 08:30 06/30/24 08:31 DC 06/30/24 08:41 Time of 1ST Reevaluation: 09:20 Reevaluation 1ST: Unchanged Time of 2ND Reevaluation: 09:13 Reevaluation 2ND: Resolved Patient Education/Counseling: Diagnosis, Treatment, Prognosis, Need For Follow Up Family Education/Counseling: No Family Present Additional Information Previous visits: 03/31/24 for positional vertigo, 04/06/19 admission for colitis The following tests were ordered, and results were reviewed by me: None Additional Information was gathered from interviewing the following independent historians: None I reviewed and agreed with the following test results read by other providers: None I discussed treatment and results with medical personnel and: Patient Comprehensive systems review obtained and negative except for what is stated in the HPI. pt has the same symptoms as in Mar. her head CT was unremarkable then. she has no new symptoms and symptoms are easily controlled by medications. she is stable for discharge for vertigo. she has no neurologic deficits, is not ataxic Departure 1 Departure Time of Disposition: 09:14 Impression: Primary Impression: BPV (benign positional vertigo) Disposition: 01 HOME / SELF CARE / HOMELESS Condition: Good e-Prescriptions Ondansetron Odt 4MG Tab (ZOFRAN PO) 4 Mg Tb 4 MG PO Q4HP PRN for 5 Days, #25 TAB ODT TAB-DISSOLVE IN MOUTH, THEN SWALLOW Prov: KAYLA RAMOS MD 06/30/24 Meclizine HCl (Meclizine 25) 25 Mg Tab 25 MG PO Q4HP PRN for 5 Days, #25 TAB Prov: KAYLA RAMOS MD 06/30/24 Discharged With: Self Critical Care Note Critical Care Time?: No Stability Stability form required: No Heart Score Heart Score: Heart Score Response (Comments) Value History N/A 0 EKG N/A 0 Age N/A 0 Risk Factors N/A 0 Troponin N/A 0 Total 0 I personally scribed for KAYLA RAMOS MD ([email or web address]) on 06/30/24 at 08:25. Electronically submitted by Jori Eller ([email or web address]). KAYLA RAMOS MD Jun 30, 2024 08:25
[2024-06-30 08:30] VITALS: BP 124/69; PULSE 84; RESP 17; TEMP 98.1; O2SAT 95
[2024-06-30] MEDS: MECLIZINE HCL 25 MG TAB PO ONE (08:40)
[2024-06-30] MEDS: ONDANSETRON ODT 4 MG TAB PO ONE (08:41)
[2024-06-30] MEDS ORDERED: ZOFR4T PO (09:14)
[2024-06-30] MEDS ORDERED: MECL1TAB42 PO (09:14)
== END 2024-06-30 09:29 | disposition home or self-care (01) ==
LOC: ER 08:02
DX: H81.12 Benign paroxysmal vertigo, left ear (principal); J44.9 Chronic obstructive pulmonary disease, unspecified; I10 Essential (primary) hypertension; E78.5 Hyperlipidemia, unspecified; Z90.89 Acquired absence of other organs
CPT/HCPCS: 82947; 93005; 99283; J8597; Q0162; 82962

== ENCOUNTER 2024-10-19 05:38 | Emergency (ER) | payer OTHER, MEDICAID ==
[~2024-10-19] VITALS: Ht 157.5 cm; Wt 82.8 kg
[~2024-10-19 05:38] MED LIST changes: +MECL1TAB42 PO; +ZOFR4T PO
--- NOTE | 2024-10-19 06:40 | ED.PDOC ---
History of Present Illness HPI Comments A 79 YEAR-OLD FEMALE, WITH A PMHX HTN AND ANXIETY, PRESENTS TO THE ED WITH A CHIEF COMPLAINT OF NECK PAIN WITH ASSOCIATED HEADACHE FOR X2 WEEKS. PATIENT DENIES ANY TRAUMA OR RECENT INJURY. PATIENT REPORTS ADDITIONAL SYMPTOMS OF DYSURIA AND NAUSEA, BUT REPORTS PAINFUL URINATION SINCE SHE WAS YOUNG. PATIENT HAS NO FURTHER COMPLAINTS AT THIS TIME AND FURTHER DENIES BLURRED VISION, FEVER, CHILLS, EMESIS, OR DIARRHEA. NO OTHER SYMPTOMS OR MODIFYING FACTORS AT THIS TIME. AT TIME OF EXAM, PATIENT IS ALERT, ORIENTATION X4 WITH NORMAL GAIT. Chief Complaint: Headache Time Seen by MD: 06:25 Primary Care Provider: PAKO Reviewed Notes: Nurses Notes, Medications, Allergies Allergies: Coded Allergies: NO KNOWN ALLERGIES (Unverified , 11/04/19) Home Meds Active Scripts Acetaminophen (Tylenol 8 Hour Arthritis) 650 Mg Tab, 650 MG PO TID, #40 TAB Prov:YAYA GUILLEN 10/19/24 Sulfamethoxazole W/Trimethopri (Bactrim Ds Tablet) 1 Tab Tb, 1 TAB PO BID for 10 Days, #20 TAB Prov:YAYA GUILLEN 10/19/24 Ondansetron Odt 4MG Tab (ZOFRAN PO) 4 Mg Tb, 4 MG PO Q4HP PRN for 5 Days, #25 TAB ODT TAB-DISSOLVE IN MOUTH, THEN SWALLOW Prov:KAYLA RAMOS MD 06/30/24 Meclizine HCl (Meclizine 25) 25 Mg Tab, 25 MG PO Q4HP PRN for 5 Days, #25 TAB Prov:KAYLA RAMOS MD 06/30/24 Naproxen (NAPROSYN TABLET) 500 Mg Tb, 1 TAB PO BID for 5 Days, #10 TAB 1 Refill Prov:SHAKEEL GARCIA MD 03/31/24 Buspirone HCl (Buspirone HCl) 10 Mg Tab, 10 MG PO 3 TIMES A DAY for 10 Days, #30 TAB Prov:SHAKEEL GARCIA MD 03/31/24 Meclizine HCl (Antivert) 25 Mg Chw, 25 MG PO Q.I.D. for 10 Days, #40 TAB.CHEW Prov:SHAKEEL GARCIA MD 03/31/24 Pantoprazole Sodium Sesquihydr (Protonix) 40 Mg Tab, 40 MG PO DAILY, #30 TAB Prov:JAZLYN ANDRADE MD 06/12/23 Ciprofloxacin Hcl (Ciprofloxacin Hcl) 500 Mg Tab, 500 MG PO Q12HR for 5 Days, #10 TAB Prov:ERNA LAUREANO MD 12/22/21 Metronidazole (Flagyl) 500 Mg Tab, 500 MG PO Q8HR for 5 Days, #15 TAB Prov:ERNA LAUREANO MD 12/22/21 Reported Medications Escitalopram Oxalate (ESCITALOPRAM OXALATE) 5 Mg Tab, 5 MG PO DAILY, TAB 11/04/19 Atorvastatin Calcium (Lipitor) 20 Mg Tab, 1 TAB PO HS, #90 TAB 1 Refill 11/04/19 Potassium Chloride (Klor-Con M20) 20 Meq Tab, 20 MEQ PO DAILY, TAB 11/04/19 Carvedilol (COREG) 3.125 Mg Tab, 3.125 MG PO BID, TAB 11/04/19 Amlodipine Besylate (Amlodipine Besylate) 5 Mg Tab, 5 MG PO BID for 30 Days, MG 04/07/19 Information Source: Patient Mode of Arrival: Ambulatory Severity: Moderate Timing: Weeks Duration: Since onset, Days Prehospital treatment: None Medication Refill: For: Other (NECK PAIN AND HEAD PAIN, DYSURIA. ) Associated signs and symptoms Neck pain, back pain Past Medical History PAST MEDICAL HISTORY: COPD, High Lipids, HTN Surgical History: Tonsillectomy MARKET CONSULTANT History: No Pertinent MARKET CONSULTANT History, Unknown Family History Family History: Reviewed,noncontributory to illness, Unknown Social History Smoker: Non-Smoker Alcohol: Denies ETOH Use Drugs: Denies Drug Use Lives In: Home Constitutional: denies: chills, diaphoresis, fatigue, fever, malaise, sweats, weakness, others EENTM: denies: blurred vision, double vision, ear bleeding, ear discharge, ear drainage, ear pain, ear ringing, eye pain, eye redness, hearing loss, mouth pain, mouth swelling, nasal discharge, nose bleeding, nose congestion, nose pain, photophobia, tearing, throat pain, throat swelling, voice changes, others Respiratory: denies: cough, hemoptysis, orthopnea, SOB at rest, shortness of breath, SOB with excertion, stridor, wheezing, others Cardiovascular: denies: chest pain, dizzy spells, diaphoresis, Dyspnea on exertion, edema, irregular heart beat, left arm pain, lightheadedness, palpitations, PND, syncope, others Gastrointestinal: denies: abdomen distended, abdominal pain, blood streaked bowels, constipated, diarrhea, dysphagia, difficulty swallowing, hematemesis, melena, nausea, poor appetite, poor fluid intake, rectal bleeding, rectal pain, vomiting, others Genitourinary: reports: dysuria; denies: abnormal vagina bleeding, burning, dyspareunia, flank pain, frequency, hematuria, incontinence, pain, , vag doug discharge, urgency, others Neurological: reports: headache; denies: dizziness, fainting, left sided numbness, left sided weakness, numbness, paresthesia, pre-existing deficit, right sided numbness, right sided weakness, seizure, speech problems, tingling, tremors, weakness, others Musculoskeletal: reports: muscle pain, neck pain; denies: back pain, gout, joint pain, joint swelling, muscle stiffness, others Integumetry: denies: bruises, change in color, change in hair/nails, dryness, laceration, lesions, lumps, rash, wounds, others Allergic/Immunocompromised: denies: Difficulty Healing, Frequent Infections, Hives, Itching, others Hematologic/Lymphatic: denies: anemia, blood clots, easy bleeding, easy bruising, swollen glands, others Endocrine: denies: excessive hunger, excessive sweating, excessive thirst, excessive urination, flushing, intolerance to cold, intolerance to heat, unexplained weight gain, unexplained weight loss, others Psychiatric: denies: anxiety, bipolar disorder, depression, hopeless, panic disorder, schizophrenia, sleepless, suicidal, others All Other Systems: Reviewed and Negative Physical Exam General Appearance: No Apparent Distress, Normal HEENT: Normal ENT Inspection, PERRL/EOMI, Pharynx Normal, TMs Normal Neck: Full Range of Motion, Normal Inspection, Supple, Tender Lateral (TENDERNESS AND MUSCLE SPASM ON POSTERIOR NECK, NO BONY TENDERNESS, SWELLING AND DEFORMITY. ) Respiratory: Chest Non-Tender, Lungs Clear, No Accessory Muscle Use, No Respiratory Distress, Normal Breath Sounds Cardiovascular: No Edema, No JVD, No Murmur, No Gallop, Normal Peripheral Pulses, Regular Rate/Rhythm Breast Exam: Deferred Gastrointestinal: No Organomegaly, Non Tender, No Pulsatile Mass, Normal Bowel Sounds, Soft Genitalia: Deferred Pelvic: Deferred Rectal: Deferred Extremities: No calf tenderness, Normal capillary refill, Normal inspection, Normal range of motion, Non-tender, No pedal edema Musculoskeletal : Apperance: Normal Neurologic: Alert, resident intern II-XII nml as Tested, No Motor Deficits, Normal Affect, Normal Mood, No Sensory Deficits Cerebellar Function: Normal Reflexes: Normal Skin: Dry, Normal Color, Warm Peripheral Pulses: 2+ carotid (R), 2+ carotid (L), 2+ Radial (R), 2+ Radial (L) Lymphatic: No Adenopathy Was a procedure done? Was a procedure done?: No Differential Dx Considerations may include: DDD OF NECK, TENSION HEADACHE, UTI, BRAIN MASS. MIGRAINE HEADACHE X-Ray, Labs, Meds, VS Vital Signs Date Time Temp Pulse Resp B/P (MAP) Pulse Ox O2 Delivery O2 Flow Rate FiO2 10/19/24 07:39 97.7 71 16 125/58 (80) 98 97.7 10/19/24 07:39 71 16 98 Room Air 10/19/24 05:41 98.2 82 18 133/76 100 98.2 Lab Test 10/19/24 06:39 10/19/24 06:25 Range/Units White Blood Count 10.3 4.4-10.8 10^3/uL Red Blood Count 4.85 4.0-5.20 10^6/uL Hemoglobin 14.0 12.2-16.2 g/dL Hematocrit 41.7 36.0-46.0 % Mean Corpuscular Volume 85.9 80.0-100.0 fL Mean Corpuscular Hemoglobin 28.9 28.0-32.0 pg Mean Corpuscular Hemoglobin Concent 33.7 32.0-36.0 g/dL Red Cell Distribution Width 14.8 H 11.8-14.3 % Platelet Count 333 140-450 10^3/uL Mean Platelet Volume 8.2 6.9-10.8 fL Neutrophils (%) (Auto) 79.5 37.0-80.0 % Lymphocytes (%) (Auto) 14.2 10.0-50.0 % Monocytes (%) (Auto) 5.7 0.0-12.0 % Eosinophils (%) (Auto) 0.3 0.0-7.0 % Basophils (%) (Auto) 0.3 0.0-2.0 % Neutrophils # (Auto) 8.2 1.6-8.6 10 ^3/uL Lymphocytes # (Auto) 1.5 0.4-5.4 10 ^3/uL Monocytes # (Auto) 0.6 0-1.3 10 ^3/uL Eosinophils # (Auto) 0 0-0.8 10 ^3/uL Basophils # (Auto) 0 0-0.2 10 ^3/uL Nucleated Red Blood Cells 0.0 % Sodium Level 145 136-145 mmol/L Potassium Level 3.2 L 3.5-5.1 mmol/L Chloride Level 108 H 98-107 mmol/L Carbon Dioxide Level 28 20-31 mmol/L Anion Gap 9 5-15 Blood Urea Nitrogen 8 L 9-23 mg/dL Creatinine 0.86 0.550-1.02 mg/dL Glomerular Filtration Rate Calc 69 >90 mL/min BUN/Creatinine Ratio 9.3 L 10.0-20.0 Serum Glucose 104 74-106 mg/dL Calcium Level 9.4 8.7-10.4 mg/dL Urine Color Light-brown Yellow Urine Clarity Turbid H Clear Urine pH 6.0 5.0-9.0 Urine Specific Melvin 1.019 1.001-1.035 Urine Protein Negative Negative Urine Ketones Negative Negative Urine Blood 1+ H Negative /uL Urine Nitrite 2+ H Negative Urine Bilirubin Negative Negative Urine Urobilinogen Normal Negative mg/dL Urine Leukocyte Esterase 3+ Negative /uL Urine RBC 17 0 - 4 /hpf Urine Microscopic WBC 105 H 0-5 /HPF Urine Squamous Epithelial Cells Few <5 /hpf Urine Bacteria Mod H None Seen /hpf Urine Mucus Few None Seen Urine Glucose Normal Normal mg/dL Current Medications Medications (Trade) Dose Ordered Sig/Néstor Route Start Time Stop Time Status Last Admin Acetaminophen (Tylenol Tablet Or Capsule) 1,000 mg ONCE ONCE PO 10/19/24 07:45 10/19/24 07:46 DC 10/19/24 08:01 Potassium Chloride (Klor-Con Tablet) 20 meq ONCE ONCE PO 10/19/24 07:45 10/19/24 07:46 DC 10/19/24 08:[address] [address] Ph: [phone] DIAGNOSTIC IMAGING Diagnostic Imaging Report : [id number] Signed PATIENT: ISSA JUSTIN ACCT: [id number] UNIT: [id number] : 1945 LOC: ER ROOM / BED: / AGE / SEX: 79 / F ADM STATUS: REG ER SERVICE 4 ORDERING PHYSICIAN: YAYA GUILLEN PROCEDURE(s): CERV2 - CERVICAL SPINE 3V REASON: NECK PAIN TO HEAD ORDER NUMBER(s): [id number], ACCESSION NUMBER(s): [id number] XY CERVICAL SPINE 3V INDICATION: NECK PAIN TO HEAD TECHNICAL DATA: The following views were obtained of the cervical spine: Frontal, lateral, swimmer's, open mouth . COMPARISON: None FINDINGS: C1-6 are visualized on the lateral view for evaluation of alignment. Cervical curvature is normal. There is no spondylolisthesis. Vertebral body heights are maintained. Disk heights are narrow. The facet joints appear degenerative. The dens and predental space demonstrate no abnormality. The C1-C2 articulation appears normal. Prevertebral soft tissues are within normal limits. IMPRESSION: No acute fracture or dislocation of the cervical spine. [place] [address] Ph: [phone] DIAGNOSTIC IMAGING Diagnostic Imaging Report : [id number] Signed PATIENT: ISSA JUSTIN ACCT: [id number] UNIT: [id number] : 1945 LOC: ER ROOM / BED: / AGE / SEX: 79 / F ADM STATUS: REG ER SERVICE 4 ORDERING PHYSICIAN: YAYA GUILLEN PROCEDURE(s): HWOCT - HEAD WITHOUT CONTRAST REASON: HEADACHE ORDER NUMBER(s): [id number], ACCESSION NUMBER(s): [id number] CT HEAD WITHOUT CONTRAST INDICATION: HEADACHE EXAM DATE: 10/19/2024 06:47 AM COMPARISON: CT HEAD WITHOUT CONTRAST on DOS: 03/31/24 RADIATION DOSE: CTDIvol: 52 mGy, DLP: 846 mGy*cm PROCEDURE: CT scans of the head were obtained from the vertex to the skull base. Sagittal and coronal reconstructions were provided. All CT scans at this medical facility are performed using dose modulation techniques as appropriate to a performed exam including the following: Automated exposure control was utilized; adjustment of the MA and/or KV according to patient size; and use of iterative reconstruction technique. FINDINGS: There is sulcal and ventricular prominence. The brainshows normal morphology and aguilar-white matter differentiation, without intracranial hemorrhage, extra-axial fluid collection, mass effect or acute large vessel infarct. The ventricles are normal in size. The basal cisterns are patent. The skull and visible facial bones are intact. The paranasal sinuses, mastoid air cells and middle ear cavities are well-aerated. The soft tissues of the scalp are unremarkable. IMPRESSION: No acute intracranial abnormality. X-Ray, Labs, Meds, VS Comment COURSE: EXTERNAL MEDICAL RECORDS REVIEWED: [NONE] INDEPENDENT HISTORIANS: [NONE] SOCIAL DETERMINANTS OF HEALTH: [NONE] LABS ORDERED: CBC, BMP, URINALYSIS REVIEWED AND INTERPRETED RESULTS: LOW POTASSIUM, AND UTI IMAGING ORDERED: NONE TREATMENTS ORDERED: ROCEPHIN 1GM IM, TYLENOL 1GM PO AND KCI 20MEQ PROCEDURES PERFORMED: NONE CRITICAL CARE TIME: NONE I HAVE DISCUSSED THE PATIENT WITH THE ATTENDING PHYSICIAN DR. JOSÉ AND SHE AGREES WITH THE PATIENT'S PLAN OF CARE AND DISPOSITION. BASED ON HISTORY OF PRESENT ILLNESS, AND PHYSICAL EXAM, PATIENT WILL BE DISCHARGED HOME. DISCUSSED PLAN FOR DISCHARGE HOME WITH RX TYLENOL 1G AND SEPTRA DS. MEDICATION WARNINGS GIVEN. SHARED DECISION MAKING: DISCUSSED WITH PATIENT THAT THEIR WORKUP WAS NORMAL. PATIENT INSTRUCTED TO FOLLOW UP WITH PRIMARY CARE PROVIDER IN 1-2 DAYS FOR RE- EVALUATION OF SYMPTOMS. PATIENT VERBALIZES UNDERSTANDING TO RETURN TO ED FOR NEW OR WORSENING SYMPTOMS OR IF FOLLOW UP WITH PCP CANNOT BE OBTAINED. PATIENT FEELS COMFORTABLE GOING HOME AT THIS TIME. ALL QUESTIONS ADDRESSED AT TIME OF DISCHARGE. Images Reviewed?: Images reviewed and evaluated by me Time of 1ST Reevaluation: 08:10 Reevaluation 1ST: Improved Patient Education/Counseling: Diagnosis, Treatment, Need For Follow Up Family Education/Counseling: Diagnosis, Treatment, Need For Follow Up Medical Screening: No EMC Exist At This Time SEPSIS Sepsis Screen Date sepsis recognized/suspect: Oct 19, 2024 Time Sepsis recognized/suspect: 0541 Recent Procedure: No On Antibiotic Therapy: No Respiratory Rate >20: No Heart Rate >90: No Temp<36 C (96.8 F) or >38.3 C: No SBP <90 or MAP <65 mmHG: No New Acute Mental Status Change: No Is the patient on CPAP, BIPAP,: No Physician Orders Head Without Contrast (10/19/24 06:25) Cervical Spine 3v (10/19/24 06:25) Vital Signs Date Time Temp Pulse Resp B/P (MAP) Pulse Ox O2 Delivery O2 Flow Rate FiO2 10/19/24 07:39 97.7 71 16 125/58 (80) 98 97.7 10/19/24 07:39 71 16 98 Room Air 10/19/24 05:41 98.2 82 18 133/76 100 98.2 Laboratory Tests Test 10/19/24 06:39 White Blood Count 10.3 10^3/uL (4.4-10.8) Medications Medications Dose Ordered Sig/Néstor Route Start Time Stop Time Status Last Admin Dose Admin Acetaminophen 1,000 mg ONCE ONCE PO 10/19/24 07:45 10/19/24 07:46 DC 10/19/24 08:01 Potassium Chloride 20 meq ONCE ONCE PO 10/19/24 07:45 10/19/24 07:46 DC 10/19/24 08:01 Departure 1 Departure Time of Disposition: 08:20 Impression: Primary Impression: Acute headache Qualified Codes: R51.9 - Headache, unspecified Additional Impressions: Arthritis of neck Urinary tract infection Qualified Codes: N30.00 - Acute cystitis without hematuria Disposition: HOME / SELF CARE / HOMELESS Condition: Stable Additional Instructions: F/U PCP IN 2 DAYS RECHECK. IF CONDITION BECOME WORSE, RETURN TO ED [facility]. e-Prescriptions Acetaminophen (Tylenol 8 Hour Arthritis) 650 Mg Tab 650 MG PO TID, #40 TAB Prov: YAYA GUILLEN 10/19/24 Sulfamethoxazole W/Trimethopri (Bactrim Ds Tablet) 1 Tab Tb 1 TAB PO BID for 10 Days, #20 TAB Prov: YAYA GUILLEN 10/19/24 Discharged With: Self, Relative Critical Care Note Critical Care Time?: No Stability Stability form required: No Heart Score Heart Score: Heart Score Response (Comments) Value History N/A 0 EKG N/A 0 Age N/A 0 Risk Factors N/A 0 Troponin N/A 0 Total 0 I personally scribed for YAYA GUILLEN ([email or web address]) on 10/19/24 at 06:40. Electronically submitted by Carmelita Moore ([email or web address]). I personally scribed for YAYA GUILLEN ([email or web address]) on 10/19/24 at 07:08. Electronically submitted by Carmelita Moore ([email or web address]). I personally scribed for YAYA GUILLEN ([email or web address]) on 10/19/24 at 07:55. Electronically submitted by Carmelita Moore ([email or web address]). I personally scribed for YAYA GUILLEN ([email or web address]) on 10/19/24 at 07:59. Electronically submitted by Carmelita Moore ([email or web address]). YAYA GUILLEN Oct 19, 2024 06:40
[2024-10-19 07:13] LABS: Hematocrit 41.7 % (36.0-46.0); Hemoglobin 14.0 g/dL (12.2-16.2); Mean Corpuscular Hemoglobin 28.9 pg (28.0-32.0); Mean Corpuscular Volume 85.9 fL (80.0-100.0); Nucleated Red Blood Cells % 0.0 %
[2024-10-19 07:19] LABS: Urine Protein, UAD Negative (Negative)
[2024-10-19 07:24] LABS: Anion Gap 9 (5-15); Calcium 9.4 mg/dL (8.7-10.4); Carbon Dioxide 28 mmol/L (20-31)
[2024-10-19 07:29] LABS: BUN/Creatinine Ratio 9.3 (10.0-20.0); Glucose 104 mg/dL (74-106)
[2024-10-19 07:30] LABS: Blood Urea Nitrogen 8 mg/dL (9-23); Chloride 108 mmol/L (98-107); Potassium 3.2 mmol/L (3.5-5.1); Sodium 145 mmol/L (136-145)
--- NOTE | 2024-10-19 07:33 | DVH ---
XY CERVICAL SPINE 3V INDICATION: NECK PAIN TO HEAD TECHNICAL DATA: The following views were obtained of the cervical spine: Frontal, lateral, swimmer's, open mouth . COMPARISON: None FINDINGS: C1-6 are visualized on the lateral view for evaluation of alignment. Cervical curvature is normal. Th ere is no spondylolisthesis. Vertebral body heights are maintained. Disk heights are narrow. The face t joints appear degenerative. The dens and predental space demonstrate no abnormality. The C1-C2 luc culation appears normal. Prevertebral soft tissues are within normal limits. IMPRESSION: No acute fracture or dislocation of the cervical spine.
--- NOTE | 2024-10-19 07:36 | DVH ---
CT HEAD WITHOUT CONTRAST INDICATION: HEADACHE EXAM DATE: 10/19/2024 06:47 AM COMPARISON: CT HEAD WITHOUT CONTRAST on DOS: 03/31/24 RADIATION DOSE: CTDIvol: 52 mGy, DLP: 846 mGy*cm PROCEDURE: CT scans of the head were obtained from the vertex to the skull base. Sagittal and coronal reconstructions were provided. All CT scans at this medical facility are performed using dose modulation techniques as appropriate t o a performed exam including the following: Automated exposure control was utilized; adjustment of th e MA and/or KV according to patient size; and use of iterative reconstruction technique. FINDINGS: There is sulcal and ventricular prominence. The brainshows normal morphology and aguilar-whi te matter differentiation, without intracranial hemorrhage, extra-axial fluid collection, mass effect or acute large vessel infarct. The ventricles are normal in size. The basal cisterns are patent. The skull and visible facial bones are intact. The paranasal sinuses, mastoid air cells and middle ear c avities are well-aerated. The soft tissues of the scalp are unremarkable. IMPRESSION: No acute intracranial abnormality.
[2024-10-19 07:39] VITALS: BP 125/58; PULSE 71; RESP 16; TEMP 97.7; O2SAT 98
[2024-10-19] MEDS ORDERED: BACDST PO (08:00)
[2024-10-19] MEDS ORDERED: ACET-1080 PO (08:00)
[2024-10-19] MEDS: ACETAMINOPHEN 500 MG TAB or CAP PO ONE (08:01)
[2024-10-19] MEDS: POTASSIUM CHL 20 Meq TABLET PO ONE (08:01)
[2024-10-19] MEDS: cefTRIAXone SOD 1,000 MG VL IM ONE (08:07)
== END 2024-10-19 08:25 | disposition home or self-care (01) ==
LOC: ER 05:38
DX: M47.812 Spondylosis without myelopathy or radiculopathy, cervical region (principal); N39.0 Urinary tract infection, site not specified; R51.9 Headache, unspecified; I10 Essential (primary) hypertension; E78.5 Hyperlipidemia, unspecified; J44.9 Chronic obstructive pulmonary disease, unspecified; Z79.899 Other long term (current) drug therapy; Z90.89 Acquired absence of other organs
CPT/HCPCS: 36415; 70450; 72040; 80048; 81001; 85025; 96372; 99285; J0696

== ENCOUNTER 2024-10-24 12:05 | Outpatient (CLI) | payer OTHER, MEDICAID ==
[~2024-10-24 12:05] MED LIST changes: +ACET-1080 PO; +BACDST PO
[2024-10-24 12:28] LABS: Hematocrit 41.2 % (36.0-46.0); Hemoglobin 13.5 g/dL (12.2-16.2); Mean Corpuscular Hemoglobin 28.2 pg (28.0-32.0); Mean Corpuscular Volume 86.0 fL (80.0-100.0); Nucleated Red Blood Cells % 0.1 %
[2024-10-24 12:41] LABS: Urine Protein, UAD Negative (Negative)
[2024-10-24 13:14] LABS: Alanine Aminotransferase 12 U/L (7-40); Albumin 4.7 g/dL (3.2-4.8); Anion Gap 11 (5-15); BUN/Creatinine Ratio 10.5 (10.0-20.0); Blood Urea Nitrogen 10 mg/dL (9-23); Calcium 9.2 mg/dL (8.7-10.4); Carbon Dioxide 23 mmol/L (20-31); Glucose 89 mg/dL (74-106); Potassium 3.9 mmol/L (3.5-5.1); Sodium 142 mmol/L (136-145); Total Protein 7.3 g/dL (5.7-8.2)
[2024-10-24 13:18] LABS: Alkaline Phosphatase 134 U/L (46-116); Bilirubin, Total 0.3 mg/dL (0.2-1.0); Chloride 108 mmol/L (98-107)
== END 2024-10-24 17:00 | disposition home or self-care (01) ==
LOC: LAB 12:05
PROVIDERS: ATTEND Internal Medicine
DX: I10 Essential (primary) hypertension (principal); N39.0 Urinary tract infection, site not specified
CPT/HCPCS: 36415; 80053; 81001; 85025; 87086

== ENCOUNTER 2024-11-15 11:32 | Outpatient (CLI) | payer OTHER, MEDICAID ==
[2024-11-15 12:06] LABS: Triglycerides 143 mg/dL (< 150)
[2024-11-15 12:08] LABS: Cholesterol 183 mg/dL (< 200); HDL Cholesterol 42 mg/dL (40-59)
[2024-11-15 12:18] LABS: Urine Protein, UAD 1+ (Negative); Urine WBC Clumps PRESENT /hpf (None Seen)
== END 2024-11-15 17:00 | disposition home or self-care (01) ==
LOC: LAB 11:32
PROVIDERS: ATTEND Internal Medicine
DX: I10 Essential (primary) hypertension (principal)
CPT/HCPCS: 36415; 80061; 81001; 84439; 84443

== ENCOUNTER 2024-11-21 10:18 | Outpatient (CLI) | payer OTHER, MEDICAID ==
[2024-11-21 10:37] LABS: Urine Protein, UAD Negative (Negative); Urine WBC Clumps PRESENT /hpf (None Seen)
== END 2024-11-21 17:00 | disposition home or self-care (01) ==
LOC: LAB 10:18
PROVIDERS: ATTEND Internal Medicine
DX: I10 Essential (primary) hypertension (principal); N31.9 Neuromuscular dysfunction of bladder, unspecified
CPT/HCPCS: 81001